=== PATIENT | female | born 1965 | race American Indian/Alaskan Native ===

== ENCOUNTER 2018-06-25 16:47 | Inpatient (IN) | payer OTHER ==
[2018-06-25] MEDS ORDERED: ASPIRIN PO ONE (17:16)
[2018-06-25] MEDS ORDERED: ZOFRAN IV ONE (17:17)
[2018-06-25] MEDS ORDERED: ZOFRAN ONE (17:17)
[2018-06-25] MEDS ORDERED: SUBLIMAZE IV ONE (17:44)
[2018-06-25] MEDS ORDERED: NITRO-BID 2% TP ONE (17:44)
[2018-06-25 17:55] LABS: Basophils # (Auto) 0.1 K/mm3 (0.0-0.1); Basophils % (Auto) 0.6 % (0.0-1.8); Eosinophils % (Auto) 0.5 % (0.0-4.3); Hematocrit 42.2 % (30.3-42.9); Hemoglobin 14.9 gm/dl (10.1-14.3); Lymphocytes # (Auto) 1.4 K/mm3 (1.2-5.4); Lymphocytes % (Auto) 16.5 % (13.4-35.0); Mean Corpuscular HGB Conc 35 % (30-34); Mean Corpuscular Hemoglobin 32 pg (28-32); Mean Corpuscular Volume 90 fl (79-97); Monocytes # (Auto) 0.6 K/mm3 (0.0-0.8); Monocytes % (Auto) 6.9 % (0.0-7.3); Platelet Count 348 K/mm3 (140-440); Red Blood Count 4.71 M/mm3 (3.65-5.03); Red Cell Distribution Width 14.3 % (13.2-15.2)
[2018-06-25 18:05] LABS: Calcium 9.9 mg/dL (8.4-10.2)
--- NOTE | 2018-06-25 18:09 | Emergency Department Report ---
HPI - General Chief Complaint: Chest Pain Time Seen by Provider: 06/25/18 17:32 - HPI HPI: Room 7 The patient is a 52-year-old female presenting with a chief complaint of chest pain. The patient states her symptoms began this afternoon while at rest with substernal chest tightness radiated into the left shoulder and back. Patient states she did get nauseous and vomited 6 times. The patient states she has had shortness of breath and diaphoresis associated with chest pain. The patient currently gets her pain score of 7/10. The patient does admit to an occasional pleuritic component. The patient states she flew down from [place] recently (approximately 1.5 hour flight). The patient states she's never had a stress test or cardiac catheterization Location: Chest Duration: 2-3 hours Quality: Pressure/burning Severity: 7/10 Modifying factors: [see above] Context: [see above] Mode of transportation: [not driving] ED Past Medical Hx - Past Medical History Hx Hypertension: Yes - Surgical History Additional Surgical History: right hand 04/2018 - Family History Family history: no significant - Social History Smoking Status: Current Every Day Smoker (1/7 per day) Substance Use Type: None (denies illicit drug use), Alcohol (occasional) ED Review of Systems ROS: Stated complaint: CHEST PAIN Other details as noted in HPI Constitutional: diaphoresis Eyes: denies: eye pain ENT: denies: throat pain Respiratory: shortness of breath Cardiovascular: chest pain Endocrine: no symptoms reported Gastrointestinal: nausea, vomiting Genitourinary: denies: dysuria Musculoskeletal: denies: back pain Neurological: denies: headache Physical Exam - Physical Exam Vital Signs: Vital Signs 06/25/18 17:02 Temperature 98 F Pulse Rate 106 H Respiratory 20 Rate Blood Pressure 138/109 [Right] O2 Sat by Pulse 99 Oximetry Physical Exam: GENERAL: The patient is well-developed well-nourished female lying on stretcher appearing to be in mild discomfort. [] HEENT: Normocephalic. Atraumatic. Extraocular motions are intact. Patient has moist mucous membranes. NECK: Supple. Trachea midline CHEST/LUNGS: Clear to auscultation. There is no respiratory distress noted. HEART/CARDIOVASCULAR: Regular. There is no tachycardia. There is no gallop rub or murmur. ABDOMEN: Abdomen is soft, nontender. Patient has normal bowel sounds. There is no abdominal distention. SKIN: There is no rash. There is no edema. There is no diaphoresis. NEURO: The patient is awake, alert, and oriented. The patient is cooperative. The patient has normal speech MUSCULOSKELETAL: There is no evidence of acute injury. ED Course Vital Signs 06/25/18 17:02 Temperature 98 F Pulse Rate 106 H Respiratory 20 Rate Blood Pressure 138/109 [Right] O2 Sat by Pulse 99 Oximetry ED Medical Decision Making - EKG Data -: EKG Interpreted by Me EKG shows normal: sinus rhythm Rate: normal - EKG Data When compared to previous EKG there are: previous EKG unavailable Interpretation: nonspecific ST-T wave lanie - Differential Diagnosis ACS, pericarditis, GERD Critical care attestation.: If time is entered above; I have spent that time in minutes in the direct care of this critically ill patient, excluding procedure time. ED Disposition Clinical Impression: Chest pain Disposition: [id number] OP ADMIT IP TO THIS HOSP Is pt being admited?: Yes Does the pt Need Aspirin: Yes Condition: Fair Instructions: Chest Pain (ED)
--- NOTE | 2018-06-25 20:01 | Cat Scan Report ---
FINAL REPORT EXAM: CT ANGIO CHEST HISTORY: chest pain, shortness of breath TECHNIQUE: Spiral CTA of the chest after the uneventful administration of IV contrast. Multiplanar reformations. 100 mL Omnipaque IV. PRIORS: None. FINDINGS: Chest: The main and bilateral proximal pulmonary arteries are normally opacified without endoluminal filling defects. No apparent aneurysm, pseudoaneurysm or aortic dissection. No significant lymph node enlargement or axillary adenopathy. Lungs show probable mild bibasilar atelectasis versus scarring. No discrete parenchymal mass, focal consolidation or pleural effusions. No apparent pneumothorax. Visualized upper abdomen grossly unremarkable. IMPRESSION: 1. No evidence of large vessel or central pulmonary emboli. No acute consolidation.
--- NOTE | 2018-06-25 22:00 | History and Physical Report ---
History of Present Illness Date of examination: 06/25/18 Date of admission: 06/25/18 Chief complaint: CC Chest pain since few hours History of present illness: THREE AFFILIATED 52-year-old female with PMH of HTN presenting with a chief complaint of chest pain. The patient states her symptoms began this afternoon while at rest with substernal chest tightness radiated into the left shoulder and back. Patient states she did get nauseous and vomited 6 times. The patient states she has had shortness of breath and diaphoresis associated with chest pain. The patient currently gets her pain score of 7/10. The patient does admit to an occasional pleuritic component. The patient states she flew down from [place] recently (approximately 1.5 hour flight). The patient states she's never had a stress test or cardiac catheterization.Noexacerbating or relieving factors Past Medical History Hx Hypertension: Yes Surgical History Additional Surgical History: right hand 04/2018 Family History Family history: no significant Social History Smoking Status: Current Every Day Smoker (1/7 per day) Substance Use Type: None (denies illicit drug use), Alcohol (occasional) Review of Systems ROS: Stated complaint: CHEST PAIN Other details as noted in HPI Constitutional: diaphoresis Eyes: denies: eye pain ENT: denies: throat pain Respiratory: shortness of breath Cardiovascular: chest pain Endocrine: no symptoms reported Gastrointestinal: nausea, vomiting Genitourinary: denies: dysuria Musculoskeletal: denies: back pain Neurological: denies: headache Medications and Allergies Allergies Allergy/AdvReac Type Severity Reaction Status Date / Time Penicillins Allergy Unknown Verified 06/25/18 16:59 Home Medications Medication Instructions Recorded Confirmed Last Taken Type Naproxen Sodium 500 mg PO 06/26/18 Unknown History amLODIPine [Norvasc] 10 mg PO DAILY 06/26/18 06/26/18 06/25/18 History Exam - Constitutional Vitals: Temp Pulse Resp BP Pulse Ox 98 F 65 15 147/89 99 06/25/18 17:02 06/25/18 19:00 06/25/18 19:00 06/25/18 19:00 06/25/18 19:00 General appearance: Present: no acute distress, well-nourished - EENT Eyes: Present: PERRL ENT: hearing intact, clear oral mucosa - Neck Neck: Present: supple, normal ROM - Respiratory Respiratory effort: normal Respiratory: bilateral: CTA - Cardiovascular Heart rate: 76 Rhythm: regular Heart Sounds: Present: S1 & S2. Absent: rub, click - Extremities Extremities: no ischemia, pulses intact, pulses symmetrical, No edema Peripheral Pulses: within normal limits - Abdominal General gastrointestinal: Present: soft, non-tender, non-distended, normal bowel sounds Female genitourinary: Present: normal - Integumentary Integumentary: Present: clear, warm, dry - Musculoskeletal Musculoskeletal: gait normal, strength equal bilaterally - Psychiatric Psychiatric: appropriate mood/affect, intact judgment & insight - Neurologic Neurologic: CNII-XII intact, moves all extremities Results - Labs CBC & Chem 7: 06/26/18 01:28 06/25/18 17:27 Labs: Laboratory Last Values WBC 8.5 K/mm3 (4.5-11.0) 06/25/18 17:27 RBC 4.71 M/mm3 (3.65-5.03) 06/25/18 17:27 Hgb 14.9 gm/dl (10.1-14.3) H 06/25/18 17:27 Hct 42.2 % (30.3-42.9) 06/25/18 17:27 MCV 90 fl (79-97) 06/25/18 17:27 MCH 32 pg (28-32) 06/25/18 17:27 MCHC 35 % (30-34) H 06/25/18 17:27 RDW 14.3 % (13.2-15.2) 06/25/18 17:27 Plt Count 348 K/mm3 (140-440) 06/25/18 17:27 Lymph % (Auto) 16.5 % (13.4-35.0) 06/25/18 17:27 [place] % (Auto) 6.9 % (0.0-7.3) 06/25/18 17:27 Eos % (Auto) 0.5 % (0.0-4.3) 06/25/18 17:27 Baso % (Auto) 0.6 % (0.0-1.8) 06/25/18 17:27 Lymph # 1.4 K/mm3 (1.2-5.4) 06/25/18 17:27 [place] # 0.6 K/mm3 (0.0-0.8) 06/25/18 17:27 Eos # 0.0 K/mm3 (0.0-0.4) 06/25/18 17:27 Baso # 0.1 K/mm3 (0.0-0.1) 06/25/18 17:27 Seg Neutrophils % 75.5 % (40.0-70.0) H 06/25/18 17:27 Seg Neutrophils # 6.4 K/mm3 (1.8-7.7) 06/25/18 17:27 D-Dimer 379.93 ng/mlDDU (0-234) H 06/25/18 17:59 Sodium 137 mmol/L (137-145) 06/25/18 17:27 Potassium 3.8 mmol/L (3.6-5.0) 06/25/18 17:27 Chloride 99.1 mmol/L (98-107) 06/25/18 17:27 Carbon Dioxide 18 mmol/L (22-30) L 06/25/18 17:27 Anion Gap 24 mmol/L 06/25/18 17:27 BUN 12 mg/dL (7-17) 06/25/18 17:27 Creatinine 1.0 mg/dL (0.7-1.2) 06/25/18 17:27 Estimated GFR 58 ml/min 06/25/18 17:27 BUN/Creatinine Ratio 12 % 06/25/18 17:27 Glucose 150 mg/dL (65-100) H 06/25/18 17:27 Calcium 9.9 mg/dL (8.4-10.2) 06/25/18 17:27 Troponin T 0.058 ng/mL (0.00-0.029) H D 06/25/18 20:20 - Imaging and Cardiology EKG: report reviewed (NSR 78/min T wave inversion in V1 thru V6and @"# Avf) Assessment and Plan Advance Directives: Yes (Full code) VTE prophylaxis?: Chemical Plan of care discussed with patient/family: Yes - Patient Problems (1) Chest pain Current Visit: Yes Status: Acute Qualifiers: Chest pain type: unspecified Qualified Code(s): R07.9 - Chest pain, unspecified Plan to address problem: CHEST PAIN R/O MA Troponins and Lexiscan ordered Possible discharge tomorrow if Stress negative (2) HTN (hypertension) Current Visit: Yes Status: Chronic Qualifiers: Hypertension type: essential hypertension Qualified Code(s): I10 - Essential (primary) hypertension Plan to address problem: Cont Amlodipine 10 mg po qd
[2018-06-25] MEDS ORDERED: SODIUM CHLORIDE FLUSH SYRINGE 10 ML IV PRN (22:01)
[2018-06-25] MEDS ORDERED: ZOFRAN IV PRN (22:01)
[2018-06-25] MEDS ORDERED: TYLENOL PO PRN (22:01)
[2018-06-25] MEDS ORDERED: MORPHINE IV PRN (22:01)
[2018-06-26 00:10] LABS: Chol/HDL Ratio 6.3 %
[2018-06-26 01:57] LABS: Hematocrit 45.1 % (30.3-42.9); Hemoglobin 14.8 gm/dl (10.1-14.3)
[2018-06-26 02:06] LABS: Partial Thromboplastin Time 26.8 Sec. (24.2-36.6)
[2018-06-26] MEDS: HEPARIN/ 0.45% NACL-25,000 UNIT/500 ML 25,000 UNIT/500 ML BAG IV SCH ×2 (02:34→16:08)
[2018-06-26 07:52] LABS: Alanine Aminotransferase 20 units/L (7-56); Albumin 4.3 g/dL (3.9-5); BUN/Creatinine Ratio 12; Blood Urea Nitrogen 11 mg/dL (7-17); Calcium 9.4 mg/dL (8.4-10.2); Hemolysis Index 3
[2018-06-26] MEDS ORDERED: LEXISCAN IV ONE ×2 (08:13→09:00)
[2018-06-26] MEDS ORDERED: LOVENOX SUB-Q SCH (10:00)
[2018-06-26] MEDS ORDERED: ZOFRAN ONE (11:07)
[2018-06-26] MEDS ORDERED: MORPHINE ONE (11:08)
--- NOTE | 2018-06-26 13:11 | Progress Note ---
Subjective Date of service: 06/26/18 Interval history: CONSULT DICTATED MILD TROPONIN',,INVERTED T's,,CONTINUED CP AT REST,,THALLIUM NEG.-POSSIBLE F-,,, ,LDL OVER 200,,SMOKER P:CATH AM Objective Vital Signs Temp Pulse Resp BP BP Pulse Ox 06/26/18 11:07 89 109/72 06/26/18 11:06 83 109/76 06/26/18 11:05 100 H 110/77 06/26/18 11:04 94 H 108/71 06/26/18 11:03 103 H 109/65 06/26/18 11:02 100 H 111/65 06/26/18 11:01 75 127/82 06/26/18 08:42 67 20 113/73 100 06/26/18 08:00 97.7 F 06/26/18 04:40 98.5 F 89 18 124/79 100 06/25/18 23:32 65 100 06/25/18 23:09 70 06/25/18 23:00 18 100 06/25/18 22:30 82 15 137/92 98 06/25/18 22:00 83 14 142/95 96 06/25/18 21:30 139/92 06/25/18 21:00 98 H 141/85 99 06/25/18 20:30 80 19 140/91 98 06/25/18 20:01 84 18 147/89 06/25/18 19:31 87 17 147/89 06/25/18 19:00 65 15 147/89 99 06/25/18 18:52 129/88 06/25/18 18:45 18 100 06/25/18 18:17 72 162/105 06/25/18 18:01 76 18 162/105 100 06/25/18 17:31 73 16 149/100 100 06/25/18 17:11 78 28 H 06/25/18 17:02 98 F 106 H 20 138/109 99 - Labs and Meds Cardiac Enzymes 06/26/18 Range/Units 07:01 AST 34 (5-40) units/L Coagulation 06/26/18 Range/Units 01:28 PT 13.7 (12.2-14.9) Sec. INR 1.00 (0.87-1.13) APTT 26.8 (24.2-36.6) Sec. Lipids 06/25/18 Range/Units 20:20 Triglycerides 74 (2-149) mg/dL Cholesterol 328 H (50-199) mg/dL HDL Cholesterol 52 (40-59) mg/dL Cholesterol/HDL Ratio 6.30 % CBC 06/25/18 06/26/18 Range/Units 17:27 01:28 WBC 8.5 (4.5-11.0) K/mm3 RBC 4.71 (3.65-5.03) M/mm3 Hgb 14.9 H 14.8 H (10.1-14.3) gm/dl Hct 42.2 45.1 H (30.3-42.9) % Plt Count 348 242 (140-440) K/mm3 Lymph # 1.4 (1.2-5.4) K/mm3 [place] # 0.6 (0.0-0.8) K/mm3 Eos # 0.0 (0.0-0.4) K/mm3 Baso # 0.1 (0.0-0.1) K/mm3 Comprehensive Metabolic Panel 06/25/18 06/26/18 Range/Units 17:27 07:01 Sodium 137 140 (137-145) mmol/L Potassium 3.8 4.0 (3.6-5.0) mmol/L Chloride 99.1 102.4 (98-107) mmol/L Carbon Dioxide 18 L 23 (22-30) mmol/L BUN 12 11 (7-17) mg/dL Creatinine 1.0 0.9 (0.7-1.2) mg/dL Glucose 150 H 109 H (65-100) mg/dL Calcium 9.9 9.4 (8.4-10.2) mg/dL AST 34 (5-40) units/L ALT 20 (7-56) units/L Alkaline Phosphatase 116 (35-129) units/L Total Protein 7.3 (6.3-8.2) g/dL Albumin 4.3 (3.9-5) g/dL - Imaging and Cardiology EKG: report reviewed (NSR 78/min T wave inversion in V1 thru V6and @"# Avf)
--- NOTE | 2018-06-26 13:38 | Progress Note ---
Assessment and Plan Assessment and plan: Patient is a 52 yo woman with a history of tobacco dependency who pw Chest pains. She is from [place] and flew here recently. She was found to have elevated troponin, negative stress, ?false negative per Cardiology so Cardiac cath tomorrow. * CTA chest IMPRESSION: 1. No evidence of large vessel or central pulmonary emboli. No acute consolidation -Chest pains, ACS, NSTEMI: on iv heparin drip, asa/statin/bblocker, Cardiology is following, Coronary angio tomorrow -Tobacco dependency: investment counselor on stopping -Dyslipidemia: treat with statin History Interval history: Patient was seen and examined. Follow-up on current diagnosis of chest pains, resolved, but nitro paste causing headaches. Overnight uneventful. Patient denies any chest pain, shortness breath, nausea/vomiting or severe headaches. Imaging, nursing note, chart, labs and old chart reviewed. Discussed with patient. Hospitalist Physical - Physical exam Narrative exam: GEN: WDWN, NAD, Awake, Alert, Orientated HEENT: NCAT, EOMI, PERRL, OP Clear NECK: supple, no adenopathy, no thyromegaly, no JVD CVS/HEART: RRR, normal S1S2, pulses present bilaterally CHEST/LUNGS: CTA B, Symmetrical chest expansion, good air entry bilaterally GI/Abdomen: soft, NTND, good bowel sounds, no guarding or rebound /Bladder: no suprapubic tenderness, no CVA or paraspinal tenderness EXT/Skin: no c/c/e, no obvious rash MSK: FROM x 4 Neuro: CN 2-12 grossly intact, no new focal deficits Psych: calm - Constitutional Vitals: Temp Pulse Resp BP Pulse Ox 97.7 F 89 20 109/72 100 06/26/18 08:00 06/26/18 11:07 06/26/18 08:42 06/26/18 11:07 06/26/18 08:42 General appearance: Present: no acute distress, well-nourished Results - Labs CBC & Chem 7: 06/26/18 01:28 06/26/18 07:01 Labs: Laboratory Last Values WBC 8.5 K/mm3 (4.5-11.0) 06/25/18 17:27 RBC 4.71 M/mm3 (3.65-5.03) 06/25/18 17:27 Hgb 14.8 gm/dl (10.1-14.3) H 06/26/18 01:28 Hct 45.1 % (30.3-42.9) H 06/26/18 01:28 MCV 90 fl (79-97) 06/25/18 17:27 MCH 32 pg (28-32) 06/25/18 17:27 MCHC 35 % (30-34) H 06/25/18 17:27 RDW 14.3 % (13.2-15.2) 06/25/18 17:27 Plt Count 242 K/mm3 (140-440) 06/26/18 01:28 Lymph % (Auto) 16.5 % (13.4-35.0) 06/25/18 17:27 [place] % (Auto) 6.9 % (0.0-7.3) 06/25/18 17:27 Eos % (Auto) 0.5 % (0.0-4.3) 06/25/18 17:27 Baso % (Auto) 0.6 % (0.0-1.8) 06/25/18 17:27 Lymph # 1.4 K/mm3 (1.2-5.4) 06/25/18 17:27 [place] # 0.6 K/mm3 (0.0-0.8) 06/25/18 17:27 Eos # 0.0 K/mm3 (0.0-0.4) 06/25/18 17:27 Baso # 0.1 K/mm3 (0.0-0.1) 06/25/18 17:27 Seg Neutrophils % 75.5 % (40.0-70.0) H 06/25/18 17:27 Seg Neutrophils # 6.4 K/mm3 (1.8-7.7) 06/25/18 17:27 PT 13.7 Sec. (12.2-14.9) 06/26/18 01:28 INR 1.00 (0.87-1.13) 06/26/18 01:28 APTT 26.8 Sec. (24.2-36.6) 06/26/18 01:28 D-Dimer 379.93 ng/mlDDU (0-234) H 06/25/18 17:59 Heparin Anti-Xa Level 0.56 U.I./ml (0.3-0.7) 06/26/18 07:01 Sodium 140 mmol/L (137-145) 06/26/18 07:01 Potassium 4.0 mmol/L (3.6-5.0) 06/26/18 07:01 Chloride 102.4 mmol/L (98-107) 06/26/18 07:01 Carbon Dioxide 23 mmol/L (22-30) 06/26/18 07:01 Anion Gap 19 mmol/L 06/26/18 07:01 BUN 11 mg/dL (7-17) 06/26/18 07:01 Creatinine 0.9 mg/dL (0.7-1.2) 06/26/18 07:01 Estimated GFR > 60 ml/min 06/26/18 07:01 BUN/Creatinine Ratio 12 % 06/26/18 07:01 Glucose 109 mg/dL (65-100) H 06/26/18 07:01 Hemoglobin A1c 5.8 % (4-6) 06/25/18 23:30 Calcium 9.4 mg/dL (8.4-10.2) 06/26/18 07:01 Total Bilirubin 0.40 mg/dL (0.1-1.2) 06/26/18 07:01 AST 34 units/L (5-40) 06/26/18 07:01 ALT 20 units/L (7-56) 06/26/18 07:01 Alkaline Phosphatase 116 units/L (35-129) 06/26/18 07:01 Troponin T 0.252 ng/mL (0.00-0.029) H* D 06/26/18 07:01 Total Protein 7.3 g/dL (6.3-8.2) 06/26/18 07:01 Albumin 4.3 g/dL (3.9-5) 06/26/18 07:01 Albumin/Globulin Ratio 1.4 % 06/26/18 07:01 Triglycerides 74 mg/dL (2-149) 06/25/18 20:20 Cholesterol 328 mg/dL (50-199) H 06/25/18 20:20 LDL Cholesterol Direct 274 mg/dL (50-130) H 06/25/18 20:20 HDL Cholesterol 52 mg/dL (40-59) 06/25/18 20:20 Cholesterol/HDL Ratio 6.30 % 06/25/18 20:20
[2018-06-26] MEDS ORDERED: NACL 0.9% 500 ML 500 ML IV SCH (14:00)
[2018-06-26] MEDS: SODIUM CHLORIDE FLUSH SYRINGE 10 ML IV SCH ×2 (14:12→22:50)
[2018-06-26] MEDS: NORVASC PO SCH (14:12)
[2018-06-26 14:53] LABS: Basophils # (Auto) 0.1 K/mm3 (0.0-0.1); Basophils % (Auto) 0.8 % (0.0-1.8); Eosinophils # (Auto) 0.1 K/mm3 (0.0-0.4); Eosinophils % (Auto) 1.4 % (0.0-4.3); Hematocrit 42.1 % (30.3-42.9); Hemoglobin 14.3 gm/dl (10.1-14.3); Lymphocytes # (Auto) 2.9 K/mm3 (1.2-5.4); Mean Corpuscular HGB Conc 34 % (30-34); Mean Corpuscular Hemoglobin 31 pg (28-32); Mean Corpuscular Volume 91 fl (79-97); Monocytes # (Auto) 0.6 K/mm3 (0.0-0.8); Monocytes % (Auto) 8.5 % (0.0-7.3); Platelet Count 340 K/mm3 (140-440); Red Blood Count 4.62 M/mm3 (3.65-5.03); Red Cell Distribution Width 14.8 % (13.2-15.2)
[2018-06-26 15:10] LABS: BUN/Creatinine Ratio 12; Blood Urea Nitrogen 11 mg/dL (7-17); Calcium 9.3 mg/dL (8.4-10.2); Hemolysis Index 23
[2018-06-26] MEDS: HALFPRIN EC PO SCH (15:13)
[2018-06-26] MEDS: LOPRESSOR PO SCH ×2 (15:13→22:50)
--- NOTE | 2018-06-26 15:31 | Consultation ---
HISTORY OF PRESENT ILLNESS: The patient is a 52-year-old female with a history of hypertension and smoking, who presented with substernal chest tightness that radiated to the left shoulder. It was severe at one point and persisted for hours, and is still going on today. There was some nausea and vomiting. There is some shortness of breath and diaphoresis. She lives in [place]. She described mild pleuritic component to her discomfort. She described mild discomfort when she swallowed food. There have been no infectious symptoms. With activity, she gets tired easily and has occasional shortness of breath. She describes some leg fatigue with activity and some slight swelling in the left ankle. There is no history of DVT. She was unaware that she has hyperlipidemia. She has been a light smoker and gives no history of lung disorders or family history of heart disorders. She has insomnia. There has been no stroke. She recently had trigger finger surgery on the right hand. FAMILY HISTORY: Negative for heart disease. SOCIAL HISTORY: Smoking: About 1 pack per week. Alcohol: No heavy use. MEDICATIONS: See the nurse's list. ALLERGIES: None listed so far. REVIEW OF SYSTEMS: Other surgeries include rotator cuff surgery, partial hysterectomy, otherwise, no other medical complaints or problems. PHYSICAL EXAMINATION: GENERAL: Well-developed, slightly overweight, no acute distress. Alert, oriented and cooperative. Mental status normal. EYES, NOSE, AND THROAT: Unremarkable. NECK: Reveals no JVD or bruits. Neck is supple, no masses. LUNGS: Clear. No labored respirations. HEART: Regular rhythm, S4 gallop, no murmurs or rubs. ABDOMEN: Soft, nontender, no masses. EXTREMITIES: No cyanosis, clubbing, or edema. Peripheral pulses are intact. NEUROLOGIC: Symmetrical. SKIN: Clear. IMPRESSION: 1. Possible acute coronary syndrome: The patient has risk factors for coronary artery disease, the pain occurred at rest and is persisting, although mild at this time, and the troponins are slightly elevated. A thallium scan showed a normal ejection fraction and no maryanne ischemia. EKG is very abnormal with precordial T-wave inversions. Given these findings, I feel it is imperative to do a coronary angiogram before discharge and treat for possible underlying coronary artery disease. 2. Hypertension. 3. Uncontrolled hyperlipidemia: The patient was not aware that she had significant elevation of the cholesterol in particular the LDL. 4. Light smoker. 5. Slightly overweight. PLAN: Discussed CAD risk factor modification, coronary angiography. JOB# [id number] HILTON/NTS
[2018-06-26] MEDS: PERCOCET 5/325 PO PRN (22:51)
[2018-06-27] MEDS: HEPARIN/ 0.45% NACL-25,000 UNIT/500 ML 25,000 UNIT/500 ML BAG IV SCH (06:55)
--- NOTE | 2018-06-27 10:55 | Event Note ---
Date: 06/27/18 52-year-old woman with a history of hypertension who is just in the area from [place]. She presented to the hospital with chest pain. After initial hospital evaluation, she was recommended for cardiac catheterization. After review of her presentation, I noted that the patient's serial EKGs show markedly abnormal deep T-wave inversions in the anterior leads, highly suggestive of LAD territory ischemia. There are no old ECGs for comparison, and she provides no history of abnormal ECG during her evaluations by her doctors in [place]. The ECG and clinical findings were clearly communicated to the patient and the strong recommendation made to proceed with diagnostic coronary angiography. The patient understands the benefits and risks of the procedure, but declines to proceed with cardiac catheterization today, prefers to await the arrival of FAMILY members to be present in the hospital before she undergoes invasive angiography. We will continue medical therapy with beta blockers, long-acting nitrates, oral antiplatelet therapy and Lovenox anticoagulation. Catheterization will be performed when patient consents.
[2018-06-27] MEDS: SODIUM CHLORIDE FLUSH SYRINGE 10 ML IV SCH ×2 (11:20→21:55)
[2018-06-27] MEDS: NORVASC PO SCH (11:20)
[2018-06-27] MEDS: LOPRESSOR PO SCH ×2 (11:20→21:54)
[2018-06-27] MEDS: HALFPRIN EC PO SCH (11:21)
[2018-06-27] MEDS: PERCOCET 5/325 PO PRN (12:46)
--- NOTE | 2018-06-27 18:09 | Progress Note ---
Assessment and Plan Assessment and plan: Patient is a 52 yo woman with a history of tobacco dependency who pw Chest pains. She is from [place] and flew here recently. She was found to have elevated troponin, negative stress, ?false negative per Cardiology so Cardiac cath tomorrow. CTA chest IMPRESSION: 1. No evidence of large vessel or central pulmonary emboli. No acute consolidation -Chest pains, ACS, NSTEMI: on iv heparin drip, asa/statin/bblocker, Cardiology is following, Coronary angio tomorrow as patient refused today due to what she considered as lack of information. All test results discussed with the patient in detail. -Tobacco dependency: student services counselor on stopping -Dyslipidemia: treat with statin -DVT and GI prophylaxis Laboratory discussed in detail with the patient. History Interval history: Patient seen and examined. was irate about her concern of lack of information. all questions answered, no new complaints. Hospitalist Physical - Physical exam Narrative exam: VITAL SIGNS: Reviewed. GENERAL: The patient appeared well nourished and normally developed. Vital signs as documented. HEAD: No signs of head trauma. EYES: Pupils are equal. Extraocular motions intact. EARS: Hearing grossly intact. MOUTH: Oropharynx is normal. NECK: No adenopathy, no JVD. CHEST: Chest with clear breath sounds bilaterally. No wheezes, rales, or rhonchi. CARDIAC: Regular rate and rhythm. S1 and S2, without murmurs, gallops, or rubs. VASCULAR: No Edema. Peripheral pulses normal and equal in all extremities. ABDOMEN: Soft, without detectable tenderness. No sign of distention. No rebound or guarding, and no masses palpated. Bowel Sounds normal. MUSCULOSKELETAL: Good range of motion of all major joints. Extremities without clubbing, cyanosis or edema. NEUROLOGIC EXAM: Alert and oriented x 3. No focal sensory or strength deficits. Speech normal. Follows commands. PSYCHIATRIC: Mood normal. SKIN: No rash or lesions. - Constitutional Vitals: Temp Pulse Resp BP Pulse Ox 97.7 F 64 18 105/70 98 06/27/18 16:00 06/27/18 16:40 06/27/18 16:40 06/27/18 16:40 06/27/18 16:40 General appearance: Present: no acute distress, well-nourished Results - Labs CBC & Chem 7: 06/26/18 14:39 06/26/18 14:39 Labs: Laboratory Last Values WBC 6.8 K/mm3 (4.5-11.0) 06/26/18 14:39 RBC 4.62 M/mm3 (3.65-5.03) 06/26/18 14:39 Hgb 14.3 gm/dl (10.1-14.3) 06/26/18 14:39 Hct 42.1 % (30.3-42.9) 06/26/18 14:39 MCV 91 fl (79-97) 06/26/18 14:39 MCH 31 pg (28-32) 06/26/18 14:39 MCHC 34 % (30-34) 06/26/18 14:39 RDW 14.8 % (13.2-15.2) 06/26/18 14:39 Plt Count 340 K/mm3 (140-440) 06/26/18 14:39 Lymph % (Auto) 43.0 % (13.4-35.0) H 06/26/18 14:39 [place] % (Auto) 8.5 % (0.0-7.3) H 06/26/18 14:39 Eos % (Auto) 1.4 % (0.0-4.3) 06/26/18 14:39 Baso % (Auto) 0.8 % (0.0-1.8) 06/26/18 14:39 Lymph # 2.9 K/mm3 (1.2-5.4) 06/26/18 14:39 [place] # 0.6 K/mm3 (0.0-0.8) 06/26/18 14:39 Eos # 0.1 K/mm3 (0.0-0.4) 06/26/18 14:39 Baso # 0.1 K/mm3 (0.0-0.1) 06/26/18 14:39 Seg Neutrophils % 46.3 % (40.0-70.0) 06/26/18 14:39 Seg Neutrophils # 3.1 K/mm3 (1.8-7.7) 06/26/18 14:39 PT 13.7 Sec. (12.2-14.9) 06/26/18 01:28 INR 1.00 (0.87-1.13) 06/26/18 01:28 APTT 26.8 Sec. (24.2-36.6) 06/26/18 01:28 D-Dimer 379.93 ng/mlDDU (0-234) H 06/25/18 17:59 Heparin Anti-Xa Level 0.65 U.I./ml (0.3-0.7) 06/27/18 12:10 Sodium 139 mmol/L (137-145) 06/26/18 14:39 Potassium 3.8 mmol/L (3.6-5.0) 06/26/18 14:39 Chloride 101.4 mmol/L (98-107) 06/26/18 14:39 Carbon Dioxide 20 mmol/L (22-30) L 06/26/18 14:39 Anion Gap 21 mmol/L 06/26/18 14:39 BUN 11 mg/dL (7-17) 06/26/18 14:39 Creatinine 0.9 mg/dL (0.7-1.2) 06/26/18 14:39 Estimated GFR > 60 ml/min 06/26/18 14:39 BUN/Creatinine Ratio 12 % 06/26/18 14:39 Glucose 111 mg/dL (65-100) H 06/26/18 14:39 Hemoglobin A1c 5.8 % (4-6) 06/25/18 23:30 Calcium 9.3 mg/dL (8.4-10.2) 06/26/18 14:39 Total Bilirubin 0.40 mg/dL (0.1-1.2) 06/26/18 07:01 AST 34 units/L (5-40) 06/26/18 07:01 ALT 20 units/L (7-56) 06/26/18 07:01 Alkaline Phosphatase 116 units/L (35-129) 06/26/18 07:01 Troponin T 0.252 ng/mL (0.00-0.029) H* D 06/26/18 07:01 Total Protein 7.3 g/dL (6.3-8.2) 06/26/18 07:01 Albumin 4.3 g/dL (3.9-5) 06/26/18 07:01 Albumin/Globulin Ratio 1.4 % 06/26/18 07:01 Triglycerides 74 mg/dL (2-149) 06/25/18 20:20 Cholesterol 328 mg/dL (50-199) H 06/25/18 20:20 LDL Cholesterol Direct 274 mg/dL (50-130) H 06/25/18 20:20 HDL Cholesterol 52 mg/dL (40-59) 06/25/18 20:20 Cholesterol/HDL Ratio 6.30 % 06/25/18 20:20
[2018-06-27] MEDS ORDERED: MILK OF MAGNESIA PO PRN (21:26)
[2018-06-27] MEDS: COLACE PO SCH (21:54)
[2018-06-28 06:05] LABS: Hemoglobin 12.8 gm/dl (10.1-14.3)
[2018-06-28 06:13] LABS: INR 0.99 (0.87-1.13)
[2018-06-28 06:14] LABS: Partial Thromboplastin Time 45.3 Sec. (24.2-36.6)
[2018-06-28 06:15] LABS: Heparin anti-factor XA 0.43 U.I./ml (0.3-0.7)
[2018-06-28] MEDS: HEPARIN/ 0.45% NACL-25,000 UNIT/500 ML 25,000 UNIT/500 ML BAG IV SCH (06:47)
[2018-06-28] MEDS: HALFPRIN EC PO SCH (08:12)
[2018-06-28] MEDS ORDERED: HALFPRIN EC PO ONE (08:13)
[2018-06-28] MEDS ORDERED: HEPARIN/NS 5000 UNIT/500ML(CATH LAB) 1,000 ML IR ONE (08:17)
[2018-06-28] MEDS ORDERED: XYLOCAINE 2% INFILTRATI ONE (08:17)
[2018-06-28] MEDS ORDERED: HEPARIN 10,000 UNITS/10 ML ONE (08:17)
[2018-06-28] MEDS ORDERED: NACL 0.9% 500 ML 500 ML ONE (08:32)
[2018-06-28] MEDS: SUBLIMAZE ONE ×2 (08:44→08:46)
[2018-06-28] MEDS: VERSED ONE ×3 (08:44→08:49)
[2018-06-28] MEDS: NITROGLYCERIN SYRINGE 3 ML ONE ×2 (08:56→08:58)
[2018-06-28] MEDS ORDERED: HEPARIN/NS 5000 UNIT/500ML(CATH LAB) 500 ML IR ONE (09:04)
[2018-06-28] MEDS ORDERED: IMDUR PO SCH (10:00)
--- NOTE | 2018-06-28 10:07 | Event Note ---
Date: 06/28/18 The patient's coronary angiograms were reviewed. There is a less than 50% stenosis of the mid LAD, not significant for coronary intervention at this time. Recommendations: Medical therapy and risk factor modification to include aspirin, statins and beta blockers. Patient is stable for discharge after post catheterization bedrest and IV hydration. On her return to [place], she has been advised to follow-up with a wage conciliator for monitoring of nonobstructive mid LAD disease with serial stress thalliums.
--- NOTE | 2018-06-28 10:16 | Discharge Summary ---
Providers - Providers Date of Admission: 06/25/18 22:01 Attending physician: RILEY PENA MD 06/26/18 01:03 Consult to Cardiology [CONS] Urgent Consulting Provider: CARLENE FRY Reason For Exam: Elevated troponin, Chest Pain Hospitalization Condition: Stable Disposition: DC- TO HOME OR SELFCARE Exam - Constitutional Vitals: Temp Pulse Resp BP Pulse Ox 98.9 F 55 L 12 109/66 98 06/28/18 09:24 06/28/18 10:00 06/28/18 10:00 06/28/18 10:00 06/28/18 10:00 Plan Activity: advance as tolerated, fall precautions Diet: low cholesterol Special Instructions: record daily BP diary Additional Instructions: FOLLOW WITH EMERGENCY COMMUNICATIONS OPERATOR ON RETURN TO [place] Follow up with: SONJA HARRISON [Other] - 7 Days Prescriptions: AtorvaSTATin [Lipitor] 40 mg PO QHS #30 tablet Aspirin EC [Aspirin Enteric Coated TAB] 81 mg PO QDAY #30 tablet ISOSORBIDE MONOnitrate [Imdur ER] 30 mg PO QDAY #30 tablet Metoprolol [Lopressor TAB] 25 mg PO BID #60 tablet Pantoprazole [Protonix TAB] 40 mg PO QDAY #30 tablet
[2018-06-28] MEDS: NORVASC PO SCH (11:32)
[2018-06-28] MEDS: LOPRESSOR PO SCH (11:32)
[2018-06-28] MEDS: COLACE PO SCH (11:32)
[2018-06-28] MEDS: SODIUM CHLORIDE FLUSH SYRINGE 10 ML IV SCH (11:38)
[2018-06-28 12:35] VITALS: BP 112/73
--- NOTE | 2018-06-28 18:33 | Cardiac Catherization Report ---
ORDERING PHYSICIAN: Dr. Schwartz. INDICATION FOR PROCEDURE: Abnormal EKG, abnormal troponin, chest pain, rule out non-ST elevation myocardial infarction. PROCEDURES PERFORMED: 1. Selective left and right coronary angiography. 2. Left ventriculography. DESCRIPTION OF PROCEDURE: 1. After obtaining written consent, the patient was draped using sterile technique. 2. A 2% lidocaine was injected into the right groin. 3. A 5-Hungarian vascular sheath was inserted into the right groin and right femoral artery. 4. A 5-Hungarian JL3.5 catheter was used to selectively engage left coronary artery. 5. A 5-Hungarian JR4 catheter was used to selectively engage the right coronary artery. 6. A 5-Hungarian JR4 catheter was used to hand inject the left ventriculogram. 7. No complications occurred during the procedure. 8. Hemostasis was achieved at the end of the procedure with manual pressure. SPECIMEN REMOVED: None. ESTIMATED BLOOD LOSS: Minimal. SEDATION ADMINISTERED: 2 mg of IV Versed and 50 mcg of IV fentanyl. SEDATION: 1. Physician and the patient sedation face to face start time is 08:24 a.m. 2. Physician and the patient sedation face to face stop time is 09:00 a.m. Total sedation time is 16 minutes. FINDINGS: HEMODYNAMICS: Aortic pressure was 100/60, LV systolic pressure 106 mmHg. Left ventricular end-diastolic pressure is 15 mmHg. There is no gradient across the left ventricular outflow tract. CARDIAC STRUCTURES: The right ventricular is normal in size. There is mild global left ventricular hypokinesis. Left ventricular ejection fraction estimated at 45%-50%. There is no regional wall motion abnormality. CORONARY ANATOMY: 1. This is a right dominant circulation. 2. The left main is angiographically normal. 3. The left anterior descending artery has evidence of a focal mid 50%-60% stenosis, otherwise mild diffuse nonobstructive coronary artery disease. 4. The left circumflex artery also has evidence of mild nonobstructive coronary artery disease. 5. The right coronary artery exhibits ostial stenosis upon engagement with the JR4 catheter. The stenosis; however, did improve and resolved after the administration of intracoronary nitroglycerin. No significant disease is noted in the mid and distal right coronary artery. IMPRESSION: 1. Borderline focal mid LAD stenosis, qualitatively graded moderate meeting between 50% and 69% luminal compromise. After review of the coronary angiograms with Dr. Schwartz, Interventional Cardiology, was decided that is a focal lesion is nonsignificant and no FFR was recommended. 2. Coronary vasospasm of the ostial right coronary artery, resolved with intracoronary nitroglycerin. 3. LV ejection fraction estimated between 45%-50%. 4. The LVEDP measured at 50 mmHg. RECOMMENDATIONS: Aggressive medical therapy and aggressive lipid-lowering therapy. JOB# [id number] MARYSE/JOEL
== END 2018-06-28 17:01 | disposition home or self-care (01) | DRG 282 ==
LOC: ED 16:47 → 4A 22:01
PROVIDERS: ADMIT Internal Medicine; ATTEND Internal Medicine
PROC: 4A023N7 Measurement of Cardiac Sampling and Pressure, Left Heart, Percutaneous Approach (ICD-10-PCS; principal; 2018-06-28)
PROC: B211YZZ Fluoroscopy of Multiple Coronary Arteries using Other Contrast (ICD-10-PCS; 2018-06-28)
PROC: B215YZZ Fluoroscopy of Left Heart using Other Contrast (ICD-10-PCS; 2018-06-28)
DX: I21.4 Non-ST elevation (NSTEMI) myocardial infarction (principal); I10 Essential (primary) hypertension; F17.210 Nicotine dependence, cigarettes, uncomplicated; E78.5 Hyperlipidemia, unspecified; E66.3 Overweight; Z88.0 Allergy status to penicillin; Z79.899 Other long term (current) drug therapy; Z68.28 Body mass index [BMI] 28.0-28.9, adult; Z71.6 Tobacco abuse counseling
CPT/HCPCS: 36415; 71275; 78452; 80048; 80053; 80061; 83036; 84484; 85014; 85018; 85025; 85049; 85379; 85520; 85610; 85730; 93005; 93010; 93017; 93458; 96374; 96375; A9270-GY; A9502; J1644; J2250; J2270; J2405; J2785; J3010; J7040; Q9967